=== PATIENT | male | born 1975 | race African-American/Black ===

== ENCOUNTER 2020-08-01 06:42 | Emergency (ER) | payer OTHER ==
[~2020-08-01] VITALS: Ht 180.3 cm; Wt 121.6 kg
[~2020-08-01 06:42] MED LIST: HYDROCHLOROTHIA25 M2 PO
[2020-08-01 07:53] LABS: ABSOLUTE NEUTROPHILS 2.5 thou/uL (1.4-8.2); BASOPHILS 0.7 % (0.0-2.0); EOSINOPHILS 2.2 % (0.0-3.0); HEMATOCRIT 45.4 % (42.0-52.0); HEMOGLOBIN 15.2 gm/dL (14.0-18.0); LYMPHOCYTES 25.3 % (24.0-44.0); MCHC 33.5 g/dL (28.0-37.0); MCV 89.4 fL (80.0-100.0); PLATELET COUNT 268 thou/uL (150-400); POLYS 63.8 % (36.0-66.0); RBC 5.08 mil/uL (4.50-6.00)
[2020-08-01 08:06] LABS: APTT 31.3 Seconds (24.5-32.8); PROTIME 10.4 Seconds (9.3-11.4)
[2020-08-01 08:07] LABS: CALCIUM 8.3 mg/dL (8.5-10.1); CREATININE 1.7 mg/dL (0.7-1.3)
[2020-08-01 08:09] LABS: POTASSIUM 2.7 mmol/L (3.5-5.1)
[2020-08-01] MEDS ORDERED: NORVASC5 M1 PO (10:44)
[2020-08-01 11:19] VITALS: BP 170/102
== END 2020-08-01 11:15 | disposition home or self-care (01) ==
LOC: ER 06:42
PROVIDERS: Emergency Medicine
DX: I10 Essential (primary) hypertension (principal); R04.0 Epistaxis

== ENCOUNTER 2020-10-26 18:08 | Emergency (ER) | payer OTHER ==
[~2020-10-26] VITALS: Ht 180.3 cm; Wt 120.2 kg
[~2020-10-26 18:08] MED LIST changes: +NORVASC5 M1 PO
[2020-10-26] MEDS ORDERED: NORVASC5 M1 PO (19:32)
[2020-10-26 20:12] VITALS: BP 180/137
== END 2020-10-26 20:20 | disposition home or self-care (01) ==
LOC: ER 18:08
DX: S01.01XA Laceration without foreign body of scalp, initial encounter (principal); M25.512 Pain in left shoulder; I10 Essential (primary) hypertension; Z79.899 Other long term (current) drug therapy; V43.52XA Car driver injured in collision with other type car in traffic accident, initial encounter; Y93.89 Activity, other specified; Y92.89 Other specified places as the place of occurrence of the external cause; Y99.8 Other external cause status

== ENCOUNTER 2020-11-01 12:34 | Emergency (ER) | payer OTHER ==
[~2020-11-01] VITALS: Ht 180.3 cm; Wt 120.3 kg
[2020-11-01 12:37] VITALS: BP 199/145
== END 2020-11-01 13:00 | disposition home or self-care (01) ==
LOC: ER 12:34
DX: S01.81XD Laceration without foreign body of other part of head, subsequent encounter (principal); I10 Essential (primary) hypertension; Z79.899 Other long term (current) drug therapy; X58.XXXD Exposure to other specified factors, subsequent encounter

== ENCOUNTER 2021-08-13 09:32 | Emergency (ER) | payer OTHER ==
[~2021-08-13] VITALS: Ht 180.3 cm; Wt 113.8 kg
[2021-08-13 11:29] VITALS: BP 166/119
== END 2021-08-13 11:30 | disposition home or self-care (01) ==
LOC: ER 09:32
DX: M25.532 Pain in left wrist (principal); I10 Essential (primary) hypertension; Z79.899 Other long term (current) drug therapy